=== PATIENT | female | born 1965 | race Two or more races ===

== ENCOUNTER 2016-11-28 14:05 | Outpatient (CLI) | payer OTHER ==
[~2016-11-28] VITALS: Ht 162.6 cm; Wt 43.2 kg
[2016-11-28 14:26] VITALS: Ht 162.6 cm; Wt 43.2 kg
[2016-11-28] MEDS ORDERED: CAPE500T13 PO ×2 (14:26)
[2016-11-28] MEDS ORDERED: HYDR-906 PO ×2 (14:26)
[2016-11-28 14:27] VITALS: BP 97/67; PULSE 105; RESP 18
--- NOTE | 2016-11-28 15:43 | PN ---
Date/Time of Note Date/Time of Note DATE: 11/28/16 TIME: 15:38 Outpatient Progress Note Chief Complaint Diarrhea/CVA rectum/nausea HPI Diarrhea/patient was recently hospitalized, patient had diarrhea, patient had C. 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 loss, no Fatigue, normal appetite, no diaphoresis. Eyes: No pain, no discharge, no redness, no visual change, no foreign body. ENT: No pain, no bleeding, no congestion, no sore throat, no dysphagia, no discharge or rhinitis. Lymph: No adenopathy, no tender nodes, no lymphedema. Resp: No SOB, no cough, no sputum, no wheezing, no chest pain. CV: No chest pain, no palpitaions, no ELIZABETH, no PND, no edema. GI: Normal appetite, no pain, mild to moderate nausea, no vomiting, patient has diarrhea few times a day loose BM, no blood, no mucus,, no blood, no constipation. : No frequency, no urgency, no dysuria, no hematuria, no flank pain, no discharge, no bleeding. Musc: No bone/joint pain, no back pain, no neck pain, no knee pain, no restricted ROM. Skin: No rash, no skin lesions, no erythema, no laceration, no bruising, no pruritus. Neuro: No CLEARY, no dizziness, no syncope, no seizure, no focal-weakness. Endo: No polyuria, no polydypsia, no dry-skin, no temp-intolerance. Psych: No hallucinations, no depression, no anxiety, no suicidal ideation. Ext: No edema, no pain, no ulcer, no weakness. Physical Exam Vital Signs Date Time Temp Pulse Resp B/P Pulse Ox O2 Delivery O2 Flow Rate FiO2 11/28/16 14:27 98.2 105 18 97/67 98 Room Air General Appearance: A 51 year-old female, who appears well-developed, well- nourished, in no acute distress. HEENT: Head normocephalic, atraumatic. Pupils equal, round, reactive to light and accommodate. Sclerae are no jaundice. Nasal turbinates pink without erythema or nasal discharge. Mucous membranes pink and moist without lesions. Oropharynx clear without any exudate or discharge. NECK: Supple. Trachea midline, No thyromegaly, No cervical lymphadenopathy, No mass, No carotid bruits, No JVD, Carotid pulses 2+ bilaterally. PULMONARY: Clear to auscultaion bilaterally, No retractions, Chest expansion symmetric bilaterally, no rales, no ronchi, no dulness on percussion. CARDIAC: Normal SI and S2, Regular rate and rythm, no murmur, gallop, or rub. GASTROINTESTINAL: Abdomen is soft, non-tender, Non Rigid, No distention, Positive bowel sounds x4 quadrants, Liver normal. Scar of previous surgery, no redness, no bleeding or discharge, SKIN: Warm, dry, no rash, no bruise, no echmosis. EXTREMITIES: Bilateral lower extremities normal, no edema, no phlabitus, pulse palpable, no contracture. MUSCULOSKELETAL: Spine Normal, Non-tender, Normal range of motion, No swelling, no deformity, no clubbing, or cyanosis, the patient has no edema to bilateral lower extremities, dorsalis pedis pulses palpable bilaterally. NEUROLOGIC: The patient is awake, alert, oriented, responding to yes/no questions appropriately, moving all extremities, cranial nerve intact, normal strenght, normal power, normal coordination, normal gait. Allergies Coded Allergies: No Known Drug Allergies (Verified Allergy, Unknown, 11/28/16) H Cancer of rectum/status post surgery, Social Hx No smoking or drinking, Family Hx Noncontributory, Assessment/Plan Impression Diarrhea secondary to C. difficile colitis CA rectum/status post surgery Nausea Plan Patient education done about disease and also colitis, patient just finished the Flagyl, will extend another week, Zofran 4 mg when necessary for nausea and vomiting, #15 Flagyl 500 mg 3 times a day #30 Patient encouraged to follow with the primary care physician, and patient states that patient has another stool test, we will also try to get her results from hospital, We'll try to apply authorization for vancomycin by mouth, if diarrhea persist we 'll prescribe that, discussed with the patient, will see her in one week or follow with the primary care physician in one week, Medications Home Meds Reported Medications Capecitabine (Capecitabine) 500 Mg Tablet, 1000 MG PO QPM, TAB 11/28/16 Capecitabine (Capecitabine) 500 Mg Tablet, 1500 MG PO QAM, TAB 11/28/16 Hydrocodone/Acetaminophen (Freedom 5-325 Tablet) 1 Each Tablet, 2 EACH PO Q6 for PAIN LEVEL 6-10, TAB 11/28/16 Hydrocodone/Acetaminophen (Freedom 5-325 Tablet) 1 Each Tablet, 1 EACH PO Q4 for PAIN LEVEL 1-5, TAB 11/28/16 ABHINAV ORTEGA MD Nov 28, 2016 15:43
== END 2016-11-28 16:48 | disposition home or self-care (01) ==
LOC: DCC 14:05
PROVIDERS: ATTEND Internal Medicine
DX: A04.7 Enterocolitis due to Clostridium difficile (principal); Z85.048 Personal history of other malignant neoplasm of rectum, rectosigmoid junction, and anus; R11.0 Nausea

== ENCOUNTER → 2017-03-21 | Outpatient (CLI) | payer OTHER ==
[~2017-03-21] MED LIST: CAPE500T13 PO; HYDR-906 PO; LIDOCAINE 1% (MPF) 5 ML VIAL SC ONE; SOD CHLORIDE 0.9% 100 ML ONE
--- NOTE | 2017-03-21 15:57 | RADRPT ---
PROCEDURE: XR Chest. CLINICAL INDICATION: Check PICC line position. TECHNIQUE: Single frontal view. COMPARISON: No prior study is available for comparison. FINDINGS: There is a left arm PICC line with the tip in the right subclavian vein. This should be repositioned . The lungs are clear. The heart size is normal. There is no pleural effusion. There is no pneumothorax. IMPRESSION: 1. Left arm PICC line tip in right subclavian vein. This should be repositioned. The PICC line nurs e is aware. 2. Otherwise normal chest radiograph. RPTAT: QQ .Hima Fountain MD, Date Time Electronically viewed and signed by .Hima Fountain MD, on 03/21/2017 15:57 .R/
--- NOTE | 2017-03-21 16:37 | RADRPT ---
PROCEDURE: XR Chest. CLINICAL INDICATION: Check PICC line position. TECHNIQUE: Single frontal view. COMPARISON: Prior study done earlier the same day. FINDINGS: There is a left arm PICC line with the tip in the Mid to lower superior vena cava. The lungs are cl ear. The heart size is normal. There is no pleural effusion. There is no pneumothorax. IMPRESSION: 1. Left arm PICC line tip in satisfactory position. 2. Otherwise normal chest radiograph. RPTAT: QQ .Hima Fountain MD, MD Date Time Electronically viewed and signed by .Hima Fountain MD, on 03/21/2017 16:37 .R/
--- NOTE | 2017-03-21 16:42 | RADRPT ---
PROCEDURE: US guidance for PICC line CLINICAL INDICATION: PICC line placement TECHNIQUE: Multiple real-time images were acquired of the patient's arm utilizing a high resolutio n transducer. This was performed by the PICC line nurse for venous access. COMPARISON: None FINDINGS: See impression. IMPRESSION: Ultrasound guidance for PICC line placement. There is a patent and compressible left upper extremity vein. RPTAT: AA Physician Jennifer Date Time Electronically viewed and signed by Physician Jennifer on 03/21/2017 16:42 RA/
== END | disposition home or self-care (01) ==
LOC: RAD 11:08
PROVIDERS: ATTEND Internal Medicine Hematology & Oncology
DX: C20 Malignant neoplasm of rectum (principal)
CPT/HCPCS: 36569; 71010; 76937; C1769; Z7610